=== PATIENT | male | born 2000 | race Caucasian/White ===

== ENCOUNTER 2021-12-07 02:35 | Outpatient (CLI) | payer BC, SELFPAY ==
[2021-12-07 12:53] LABS: Anion Gap 10.1 mmol/L (3-11); BUN 17 mg/dL (7-18); CO2 27.9 mmol/L (21.0-32.0); CREATININE 0.9 mg/dL (0.70-1.30); Chloride 102 mmol/L (98-107); Glucose 107 mg/dL (74-106); Potassium 3.8 mmol/L (3.5-5.1); Sodium 140 mmol/L (136-145)
[2021-12-08 13:26] LABS: Sirolimus 6.8 ng/mL (See Note)
== END 2021-12-07 02:36 | disposition home or self-care (01) ==
PROVIDERS: Visit Provider Pediatrics
DX: Z94.1 Heart transplant status (principal)
CPT/HCPCS: 36415; 80048; 80195

== ENCOUNTER 2022-03-16 01:18 | Outpatient (CLI) | payer OTHER, SELFPAY ==
[2022-03-16 11:48] LABS: Abs Immature Grans 0.02 10^3/uL (0.0-0.06); Absolute Basophil Count 0.04 10^3/uL (0.0-0.2); Absolute Eosinophil Count 0.12 10^3/uL (0.0-0.7); Absolute Lymphocyte Count 0.93 10^3/uL (1.2-3.4); Absolute Monocyte Count 0.34 10^3/uL (0.1-0.8); Absolute Neutrophil Count 4.48 10^3/uL (1.2-6.7); Basophils % 0.7; HCT 45.1 % (40.0-50.0); HGB 14.8 g/dL (13.5-17.5); Immature Grans % 0.3; Lymphocytes % 15.7; MCH 26.7 pg (27.0-33.0); MCHC 32.8 % (32.0-36.0); MCV 81 fL (80-95); MPV 9.5 fL (8.0-11.0); Monocytes % 5.7; Neutrophils % 75.6; Platelet Count 239 10^3/uL (130-400); RBC 5.55 10^6/uL (4.36-5.78); RDW 13.6 % (11.8-14.1); RDW-SD 40.1 fL; WBC 5.93 10^3/uL (4.4-10.8)
[2022-03-16 12:22] LABS: ALT 27 U/L (16-63); AST 24 U/L (15-37); Albumin 3.9 g/dL (3.4-5.0); Alkaline Phosphatase 91 U/L (46-116); Anion Gap 9.5 mmol/L (3-11); BUN 13 mg/dL (7-18); Bilirubin, Direct 0.1 mg/dL (0.0-0.2); Bilirubin, Total 0.4 mg/dL (0.2-1.0); CO2 28.5 mmol/L (21.0-32.0); CREATININE 0.8 mg/dL (0.70-1.30); Calcium 8.9 mg/dL (8.5-10.1); Calculated LDL 49 mg/dL (<100); Chloride 104 mmol/L (98-107); Cholesterol 125 mg/dL (<200); Glucose 87 mg/dL (74-106); HDL Cholesterol 65 mg/dL (40-60); Sodium 142 mmol/L (136-145); Total Protein 7.1 g/dL (6.4-8.2); Triglyceride 58 mg/dL (<150)
[2022-03-19 12:06] LABS: Sirolimus 9.6 ng/mL (See Note)
== END 2022-03-16 01:19 | disposition home or self-care (01) ==
PROVIDERS: Visit Provider Physician Assistant
DX: Z94.1 Heart transplant status (principal); Z51.81 Encounter for therapeutic drug level monitoring
CPT/HCPCS: 36415; 80048; 80061; 80076; 80195; 85025

== ENCOUNTER 2022-06-15 01:11 | Outpatient (CLI) | payer OTHER, SELFPAY ==
[2022-06-15 11:09] LABS: Abs Immature Grans 0.01 10^3/uL (0.0-0.06); Absolute Basophil Count 0.02 10^3/uL (0.0-0.2); Absolute Eosinophil Count 0.02 10^3/uL (0.0-0.7); Absolute Lymphocyte Count 0.94 10^3/uL (1.2-3.4); Absolute Monocyte Count 0.38 10^3/uL (0.1-0.8); Absolute Neutrophil Count 5.19 10^3/uL (1.2-6.7); Basophils % 0.3; Eosinophils % 0.3; HCT 45.1 % (40.0-50.0); HGB 14.7 g/dL (13.5-17.5); Immature Grans % 0.2; Lymphocytes % 14.3; MCH 27.1 pg (27.0-33.0); MCHC 32.6 % (32.0-36.0); MCV 83 fL (80-95); MPV 9.2 fL (8.0-11.0); Monocytes % 5.8; Neutrophils % 79.1; Platelet Count 228 10^3/uL (130-400); RBC 5.43 10^6/uL (4.36-5.78); RDW 13.2 % (11.8-14.1); RDW-SD 40.2 fL; WBC 6.56 10^3/uL (4.4-10.8)
[2022-06-15 11:43] LABS: ALT 28 U/L (16-63); AST 25 U/L (15-37); Albumin 4.1 g/dL (3.4-5.0); Alkaline Phosphatase 96 U/L (46-116); Anion Gap 7.1 mmol/L (3-11); BUN 15 mg/dL (7-18); Bilirubin, Direct 0.2 mg/dL (0.0-0.2); Bilirubin, Total 0.8 mg/dL (0.2-1.0); CO2 30.9 mmol/L (21.0-32.0); CREATININE 0.8 mg/dL (0.70-1.30); Calcium 9.1 mg/dL (8.5-10.1); Chloride 103 mmol/L (98-107); Estimated GFR 127.53 (mL/min/1.73m2); Glucose 75 mg/dL (74-106); Potassium 3.6 mmol/L (3.5-5.1); Sodium 141 mmol/L (136-145); Total Protein 7.2 g/dL (6.4-8.2)
== END 2022-06-15 01:12 | disposition home or self-care (01) ==
DX: Z94.1 Heart transplant status (principal)
CPT/HCPCS: 36415; 80048; 80076; 80195; 83735; 85025